=== PATIENT | female | born 2000 | race Caucasian/White ===

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

== ENCOUNTER → 2023-07-22 | Outpatient (CLI) | payer BC ==
[~2023-07-22] MED LIST: CLAR10CA3 PO; ORTH1TAB8 PO
== END ==
LOC: M WUC 08:08
PROVIDERS: ATTEND Physician Assistant
DX: S60.211A Contusion of right wrist, initial encounter (principal); S60.221A Contusion of right hand, initial encounter; Y93.9 Activity, unspecified; Y92.9 Unspecified place or not applicable